=== PATIENT | female | born 1955 | race Asian ===

== ENCOUNTER 2016-06-03 08:34 | Day surgery (SDC) | payer OTHER ==
[2016-06-03] VITALS (17 sets, daily range): BP systolic 80–141; BP diastolic 42–69; PULSE 64–78; RESP 14–24; Ht 144.8 cm; Wt 42.0 kg
[~2016-06-03] VITALS: Ht 144.8 cm; Wt 42.0 kg
--- NOTE | 2016-06-03 09:59 | OPPN ---
Date/Time of Note Date/Time of Note DATE: 06/03/16 TIME: 09:57 Anesthesia Eval and Record Evaluation Age 61 Sex female NPO: 8 hrs Preoperative diagnosis L eye pterygium Planned procedure L eye pterygium excision Past Medical History Cardio: Dyslipidemia GI: GERD Surgery & Anesthesia Issues No known issue Meds Anticoagulation: No Beta Timbo within 24 hr: No Reason Beta Timbo not given: Pt. not on B-Timbo started on GERD medication by PMD, pt does not recall medication, states better Current Medications Mitomycin (Mutamycin) 0.3 mg 1030 LEFT EYE ; Start 06/03/16 at 10:30; Stop at 12:00 Allergies Coded Allergies: No Known Allergy (Unverified , 05/31/16) Labs/Studies Reviewed by anesthesiologist Test: N/A Studies: ECG, CXR Pre-procedure Exam Last vitals Vital Signs Date Time Temp Pulse Resp B/P Pulse Ox O2 Delivery O2 Flow Rate FiO2 06/03/16 09:27 97.6 70 18 141/69 98 Room Air Airway: Adequate mouth opening, Adequate thyromental dist Mallampati Score: Mallampati III Teeth: Normal Lung: Normal Heart: Normal ASA Physical Status ASA physical status: 2 Planned Anesthetic General/MAC: MAC Planned Pain Management Parenteral pain med, Local by surgeon Pre-operative Attestations Prior to commencing anesthesia and surgery, the patient was re-evaluated, there was verification of: *The patient's identity *The results of appropriate recent lab work and preoperative vital signs *The above evaluation not changing prior to induction *Anesthetic plan, risk benefits, alternative and complications discussed with patient/family; questions answered; patient/family understands, accepts and wishes to proceed. MACK TOVAR MD Jun 03, 2016 09:59
[2016-06-03] MEDS ORDERED: LIDOCAINE 2%/EPI 30 ML INJ ONE (10:19)
[2016-06-03] MEDS ORDERED: TOBRAMYCIN/DEXAMETH 3.5 GM OPH OINT ONE (10:19)
[2016-06-03] MEDS ORDERED: MITOMYCIN 5 MG INJ LEFT EYE SCH (10:30)
[2016-06-03] MEDS ORDERED: ONDANSETRON 4 MG INJ ONE (10:42)
[2016-06-03] MEDS ORDERED: FENTAnyl 50 MCG/ML VIAL ONE (10:42)
[2016-06-03] MEDS ORDERED: MIDAZOLAM 1 MG/ML 2 ML INJ ONE (10:42)
[2016-06-03] MEDS ORDERED: METOCLOPRAMIDE 10 MG INJ ONE (10:43)
--- NOTE | 2016-06-03 10:50 | HPN ---
Date/Time of Note Date/Time of Note DATE: 06/03/16 TIME: 10:49 Interval H&P Admission Note Pt. seen H&P reviewed: No system changes TRINY ROSSI MD Jun 03, 2016 10:50
[2016-06-03] MEDS ORDERED: DIPHENHYDRAMINE 50 MG INJ IV PRN (11:00)
[2016-06-03] MEDS ORDERED: MEPERIDINE 25 MG INJ IV PRN (11:00)
[2016-06-03] MEDS ORDERED: OXYCODONE/ACETAMINOPHEN (5/325) TAB PO PRN (11:00)
[2016-06-03] MEDS ORDERED: FENTAnyl 50 MCG/ML VIAL IV PRN (11:00)
[2016-06-03] MEDS ORDERED: ONDANSETRON 4 MG INJ IV PRN (11:00)
[2016-06-03] MEDS ORDERED: PROCHLORPERAZINE 10 MG INJ IV PRN (11:00)
[2016-06-03] MEDS ORDERED: TETRACAINE 0.5% 4 ML OPH LEFT EYE ONE (11:31)
[2016-06-03] MEDS ORDERED: BALANCED SALT SOLN 15 ML OPH IRRIG LEFT EYE ONE (11:32)
[2016-06-03] MEDS ORDERED: LIDOCAINE 2%/EPI (MDV) 20ML INJ INJ ONE (11:32)
[2016-06-03] MEDS ORDERED: TOBRAMYCIN/DEXAMETH 3.5 GM OPH OINT LEFT EYE ONE (11:34)
[2016-06-03] MEDS ORDERED: PHENYLephrine 2.5% 5 ML OPH LEFT EYE ONE (11:35)
--- NOTE | 2016-06-03 11:54 | OPPN ---
Date/Time of Note Date/Time of Note DATE: 06/03/16 TIME: 11:53 Post-Anesthesia Notes Post-Anesthesia Note Last documented vital signs 99.4 102/54 72 10 100% Activity: WNL Respiratory function: WNL Cardiovascular function: WNL Mental status: Baseline Pain reasonably controlled: Yes Hydration appropriate: Yes Nausea/Vomiting absent: Yes MACK TOVAR MD Jun 03, 2016 11:54
--- NOTE | 2016-06-04 16:58 | OPR ---
DATE OF OPERATION: 06/03/2016 SURGEON: Radha Mckeon MD [employer] SUPERVISOR: None. ANESTHESIOLOGIST: PREOPERATIVE DIAGNOSIS: Pterygium, left eye. POSTOPERATIVE DIAGNOSIS: Pterygium, left eye. OPERATION: Excision of pterygium, left eye; application of mitomycin C; closure of defect with conj unctival advancement flaps. DESCRIPTION OF PROCEDURE: Following standard preparation and draping of the patient, a solid-blade lid speculum was placed for immobilization of the lids. A small amount of 2% Xylocaine with epineph rine was injected beneath the body of the pterygium so as to elevate it from the underlying sclerae. After adequate local anesthesia was obtained, Vince scissors were simply used to make an incisi on along the edges of the pterygium, amputating the body approximately 1 cm posterior to the limbus. At the limbus, the major portion of the tissue was simply excised using sharp scissors. Using a rotating olga bur, all of the scar tissue on the cornea was removed down to clear cornea. At this point, bleeding points were secured with the heat cautery. Mitomycin C (0.2 mg/ml) was no w applied to the limbal regions for three minutes. After three minutes, the eye was copiously irrig ated with balanced salt solution. A peritomy was now performed both superiorly and inferiorly and r elaxing incisions made at approximately the 6 and 12 o'clock positions. The undermining conjunctiva was now pulled both superiorly and inferiorly so as to close the previously made defect from which the pterygium had been removed. Sutures of interrupted 8-0 Vicryl were used and a bite of the under lying sclera was taken so as to ensure adequate maintenance of the flaps in a nonmovable position. Betadine 5% solution was placed on the eye, along with TobraDex ointment. A light pressure dressing was applied, and the patient returned to the recovery room in satisfactory condition. Dictated By: RADHA [place]/BINH Conf#: [id number] DID#: [id number]
== END 2016-06-03 14:23 | disposition home or self-care (01) ==
LOC: EDSEX 08:34 → SDS 08:34
PROVIDERS: ATTEND Ophthalmology
DX: H11.002 Unspecified pterygium of left eye (principal); E78.5 Hyperlipidemia, unspecified
CPT/HCPCS: 65420; J2250; J2405; J2765; J3010; J9280; Z7512; Z7610